=== PATIENT | male | born 1940 | race Caucasian/White ===

== ENCOUNTER 2016-10-11 10:56 | Outpatient (CLI) | payer MEDICARE, OTHER | END 2016-10-11 10:57 | disposition home or self-care (01) | DX: I48.91 Unspecified atrial fibrillation (principal); Z79.01 Long term (current) use of anticoagulants; I50.9 Heart failure, unspecified ==

== ENCOUNTER 2016-11-04 08:00 | Outpatient (CLI) | payer MEDICARE, OTHER | END 2016-11-04 08:01 | disposition home or self-care (01) | DX: I48.91 Unspecified atrial fibrillation (principal); Z79.01 Long term (current) use of anticoagulants; I50.9 Heart failure, unspecified ==

== ENCOUNTER 2016-12-30 08:00 | Outpatient (CLI) | payer MEDICARE, OTHER | END 2016-12-30 08:01 | disposition home or self-care (01) | DX: I48.91 Unspecified atrial fibrillation (principal); Z79.01 Long term (current) use of anticoagulants; I50.9 Heart failure, unspecified ==

== ENCOUNTER 2017-01-02 09:17 | Outpatient (CLI) | payer MEDICARE, OTHER | END 2017-01-02 09:18 | disposition home or self-care (01) | DX: Z79.01 Long term (current) use of anticoagulants (principal); I48.91 Unspecified atrial fibrillation; I50.9 Heart failure, unspecified ==

== ENCOUNTER 2017-03-18 17:54 | Emergency (ER) | payer MEDICARE, OTHER ==
[2017-03-18] MEDS ORDERED: TETANUS/DIPHTHERIA/PERTUSSIS 0.5 ML SYRINGE IM ONE ×2 (18:02→18:32)
--- NOTE | 2017-03-18 18:49 | ED Physician Documentation ---
History of Present Illness - Stated complaint Stated Complaint: RT ARM BLEED - Chief complaint Chief Complaint: Ext Problem - Additonal information Additional information: hx from pt 77 male on coumadin X 30 yr for aortic valve caught L FA on backpack while in [place] with friends and has a small skin tear that would not stop bleeding INR 3.7 today no other concerns Review of Systems Skin: reports: Laceration (s) PD PAST MEDICAL HISTORY - Past Medical History Past Medical History: Yes Cardiovascular: Atrial fibrillation - Past Surgical History Past Surgical History: Yes Cardiovascular: Valve replacement - Present Medications Home Medications: Ambulatory Orders Medication Instructions Recorded Confirmed Metoprolol Tartrate 20 mg PO DAILY 03/18/17 03/18/17 Warfarin [Coumadin] 5 mg PO DAILY 03/18/17 03/18/17 - Allergies Allergies/Adverse Reactions: Allergies Allergy/AdvReac Type Severity Reaction Status Date / Time No Known Drug Allergies Allergy Verified 03/18/17 18:00 - Social History Does the pt smoke?: No Smoking Status: Former smoker - Immunizations Immunizations are current?: No Immunizations: TDAP >10years/unknown PD ED PE NORMAL - Vitals Vital signs reviewed: Yes - Extremities Extremities: Other (R FA small skin tear approx 2 cm no active bleed at this time, no infection, no deformity, MSV intact) Results - Vitals Vitals: Vital Signs - 24 hr 03/18/17 17:58 Temperature 36.3 C L Heart Rate 68 Respiratory 18 Rate Blood Pressure 136/72 H O2 Saturation 97 Oxygen O2 Source Room air - Labs Labs: Laboratory Tests 03/18/17 18:29 Whole Blood INR 3.7 H PD MEDICAL DECISION MAKING - ED course ED course: tdap given wound cleanned dressed with gelfoam Departure - Departure Disposition: 01 Home, Self Care Clinical Impression: Skin tear Condition: Good Instructions: ED Avulsion Dermal Follow-Up: Silvano Hernandez MD [Primary Care Provider] - Comments: Leave the dressing with the gel foam on for 48 hr, then may remove. Soak the gel foam to remove - don't just pull. After the dressing is removed, apply antibiotic ointment every day for a week. Return for any concerns of infection Make a record of getting your tetanus shot updated today. And please follow up with your PMD to get your blood pressure rechecked - it was a little bit high today
[2017-03-18 19:00] VITALS: BP 120/73
== END 2017-03-18 18:59 | disposition home or self-care (01) ==
LOC: ED 17:54
DX: S51.812A Laceration without foreign body of left forearm, initial encounter (principal); W45.8XXA Other foreign body or object entering through skin, initial encounter; Z23 Encounter for immunization; R03.0 Elevated blood-pressure reading, without diagnosis of hypertension; Z79.01 Long term (current) use of anticoagulants; Z95.2 Presence of prosthetic heart valve; I48.91 Unspecified atrial fibrillation; Z87.891 Personal history of nicotine dependence
CPT/HCPCS: 85610; 90471; 99282; 99283

== ENCOUNTER 2017-03-19 15:27 | Emergency (ER) | payer MEDICARE, OTHER ==
[2017-03-19 15:34] VITALS: BP 120/66
--- NOTE | 2017-03-19 16:13 | ED Physician Documentation ---
PD HPI WOUND RECHECK - Stated complaint Stated Complaint: WOUND CHECK - Chief complaint Chief Complaint: Wound - Histroy obtained from History obtained from: Patient - History of Present Illness Location: Right Upper Extremity Timing - onset: Yesterday - Additional information Additional information: Skin tear, needs dressing change, Review of Systems Constitutional: denies: Fever, Chills Cardiac: reports: Reviewed and negative Respiratory: reports: Reviewed and negative PD PAST MEDICAL HISTORY - Past Medical History Cardiovascular: Atrial fibrillation - Past Surgical History Past Surgical History: Yes Cardiovascular: Valve replacement - Present Medications Home Medications: Ambulatory Orders Medication Instructions Recorded Confirmed Metoprolol Tartrate 20 mg PO DAILY 03/18/17 03/18/17 Warfarin [Coumadin] 5 mg PO DAILY 03/18/17 03/18/17 - Allergies Allergies/Adverse Reactions: Allergies Allergy/AdvReac Type Severity Reaction Status Date / Time No Known Drug Allergies Allergy Verified 03/18/17 18:00 - Social History Does the pt smoke?: No Smoking Status: Former smoker - Immunizations Immunizations are current?: No Immunizations: TDAP >10years/unknown PD ED PE NORMAL - Vitals Vital signs reviewed: Yes - General General: Alert and oriented X 3, No acute distress - Extremities Extremities: Other (Skin tear, small medial R forearm. Steristrips placed and a dressing over that during exam.) - Neuro Neuro: Alert and oriented X 3, Normal speech - Psych Psych: Normal mood, Normal affect Results - Vitals Vitals: Vital Signs - 24 hr 03/19/17 15:29 Temperature 35.7 C L Heart Rate 72 Respiratory 16 Rate Blood Pressure 120/66 O2 Saturation 97 Oxygen O2 Source Room air Departure - Departure Disposition: Home, Self Care Clinical Impression: Skin tear Condition: Good Record reviewed to determine appropriate education?: Yes Instructions: ED Laceration Ext Sutr Stap Tape
== END 2017-03-19 16:20 | disposition home or self-care (01) ==
LOC: ED 15:27
DX: S51.811D Laceration without foreign body of right forearm, subsequent encounter (principal); X58.XXXD Exposure to other specified factors, subsequent encounter; I48.91 Unspecified atrial fibrillation; Z79.01 Long term (current) use of anticoagulants; Z95.2 Presence of prosthetic heart valve; Z87.891 Personal history of nicotine dependence
CPT/HCPCS: 99282; 99283

== ENCOUNTER 2017-06-23 09:22 | Outpatient (CLI) | payer MEDICARE, OTHER | END 2017-06-23 09:23 | disposition home or self-care (01) | LOC: LAB.N 09:22 | PROVIDERS: ATTEND Internal Medicine | DX: I48.91 Unspecified atrial fibrillation (principal); Z79.01 Long term (current) use of anticoagulants; I50.9 Heart failure, unspecified | CPT/HCPCS: 85610 ==

== ENCOUNTER 2017-07-21 08:06 | Outpatient (CLI) | payer MEDICARE, OTHER | END 2017-07-21 08:07 | disposition home or self-care (01) | LOC: LAB.N 08:06 | PROVIDERS: ATTEND Internal Medicine | DX: I48.91 Unspecified atrial fibrillation (principal); I50.9 Heart failure, unspecified; Z79.01 Long term (current) use of anticoagulants | CPT/HCPCS: 85610 ==

== ENCOUNTER 2017-08-11 08:07 | Outpatient (CLI) | payer MEDICARE, OTHER | END 2017-08-11 08:08 | disposition home or self-care (01) | LOC: LAB.N 08:07 | PROVIDERS: ATTEND Internal Medicine | DX: I48.91 Unspecified atrial fibrillation (principal); I50.9 Heart failure, unspecified; Z79.01 Long term (current) use of anticoagulants | CPT/HCPCS: 85610 ==

== ENCOUNTER 2017-08-21 09:40 | Outpatient (CLI) | payer MEDICARE, OTHER | END 2017-08-21 09:41 | disposition home or self-care (01) | LOC: LAB.N 09:40 | PROVIDERS: ATTEND Internal Medicine | DX: I48.91 Unspecified atrial fibrillation (principal); I50.9 Heart failure, unspecified; Z79.01 Long term (current) use of anticoagulants | CPT/HCPCS: 85610 ==

== ENCOUNTER 2017-10-23 11:03 | Outpatient (CLI) | payer MEDICARE, OTHER ==
--- NOTE | 2017-10-23 17:36 | XRAY Report ---
TWO VIEW CHEST: 10/23/2017 CLINICAL INDICATION: Aspiration pneumonia. COMPARISON: 01/03/2015 FINDINGS: Frontal and lateral views of the chest demonstrate a normal cardiac silhouette. Changes of cardiac surgery are stable. Left jugular port terminates in the right atrium. There is new patchy infiltrate at the right base, superimposed upon COPD. No effusion or pneumothorax is seen. IMPRESSION: PATCHY RIGHT BASILAR INFILTRATE, SUPERIMPOSED UPON COPD. TD: 10/23/2017 17:30
== END 2017-10-23 11:04 | disposition home or self-care (01) ==
LOC: DI 11:03
PROVIDERS: ATTEND Internal Medicine Critical Care Medicine
DX: R91.8 Other nonspecific abnormal finding of lung field (principal); J44.9 Chronic obstructive pulmonary disease, unspecified
CPT/HCPCS: 71046

== ENCOUNTER 2017-12-12 00:54 | Outpatient (CLI) | payer MEDICARE, OTHER | END 2017-12-12 00:55 | disposition critical access hospital (66) | LOC: EMS 00:54 | PROVIDERS: ATTEND Surgery | DX: R06.00 Dyspnea, unspecified (principal) | CPT/HCPCS: A0425; A0427 ==

== ENCOUNTER 2017-12-12 01:10 | Emergency (ER) | payer MEDICARE, OTHER ==
[2017-12-12] MEDS ORDERED: IOPAMIDOL-300 100 ML VIAL IVP ONE ×2 (01:11→02:36)
[2017-12-12] MEDS ORDERED: IPRATROPIUM/ALBUTEROL 3 ML NEB INH STA (01:21)
--- NOTE | 2017-12-12 01:24 | ED Physician Documentation ---
PD HPI DYSPNEA - Stated complaint Stated Complaint: SOA, LUNG CA - Chief complaint Chief Complaint: Resp - History obtained from History obtained from: Patient, EMS - History of Present Illness Timing - onset: Today Timing - onset during: Rest Timing - details: Gradual onset, Still present Improved by: Inhaler/neb Worsened by: Laying flat Associated symptoms: Wheezing, Bilateral edema. No: Fever, Cough, Chest pain / discomfort Similar symptoms before: Work up / diagnostics, Treatment - Additional information Additional information: Patient is a 77 year old male with a history of metastatic lung ca, copd/asthma and recent MN 3 months prior that subsequently led to cardiac arrest who is presenting to the emergency department for shortness of breath. Patient states that he had his dose of chemotherapy yesterday and today he felt more short of breath, which is not uncommon for him. he stated that he kept getting progressively worse, especially when he would lie down so he called ems. When ems arrived he was just starting a breathing treatment. he was treated with an additional duoneb while enroute. Upon initial evaluation patient stated that he was felling a bit better. He was oxygenating well but he had some accessory muscle usage. Review of Systems Constitutional: denies: Fever, Chills Eyes: reports: Reviewed and negative Ears: reports: Reviewed and negative Nose: reports: Reviewed and negative Throat: reports: Reviewed and negative Cardiac: reports: Pedal edema. denies: Chest pain / pressure, Palpitations Respiratory: reports: Dyspnea, Cough, Wheezing GI: denies: Nausea, Vomiting : reports: Reviewed and negative Musculoskeletal: reports: Extremity swelling Neurologic: denies: Generalized weakness, Focal weakness Immunocompromised: reports: Immunocompromised, Chemotherapy PD PAST MEDICAL HISTORY - Past Medical History Cardiovascular: Atrial fibrillation - Past Surgical History Past Surgical History: Yes Cardiovascular: Valve replacement - Present Medications Home Medications: Ambulatory Orders Medication Instructions Recorded Confirmed Metoprolol Tartrate 20 mg PO DAILY 03/18/17 03/19/17 Warfarin [Coumadin] 5 mg PO DAILY 03/18/17 03/19/17 - Allergies Allergies/Adverse Reactions: Allergies Allergy/AdvReac Type Severity Reaction Status Date / Time No Known Drug Allergies Allergy Verified 03/18/17 18:00 - Social History Does the pt smoke?: No Smoking Status: Former smoker Does the pt drink ETOH?: No Does the pt have substance abuse?: No - Immunizations Immunizations are current?: Yes Immunizations: TDAP >10years/unknown - POLST Patient has POLST: No PD ED PE NORMAL - Neck Neck: Other - Cardiac Cardiac: RRR - Abdomen Abdomen: Soft, Non tender, Non distended - Derm Derm: Normal color - Neuro Neuro: Alert and oriented X 3, No motor deficit, Normal speech PD ED PE EXPANDED - HEENT HEENT: Dry mucous membranes - Neck Neck: JVD present - Cardiac Cardiac: Murmur Present, Other (port in left chest) - Respiratory Respiratory: Wheezing, Decreased breath sounds, Right middle lobe, Right lower lobe Results - Vitals Vitals: Vital Signs - 24 hr 12/12/17 12/12/17 12/12/17 01:14 01:54 02:08 Temperature 36.1 C L Heart Rate 89 87 93 Respiratory 18 8 L 18 Rate Blood Pressure 100/66 88/61 L O2 Saturation 100 98 12/12/17 12/12/17 12/12/17 02:41 03:02 03:20 Temperature Heart Rate 88 85 85 Respiratory 17 17 19 Rate Blood Pressure 95/60 90/49 L 90/49 L O2 Saturation 100 100 96 12/12/17 03:21 Temperature Heart Rate 91 Respiratory 20 Rate Blood Pressure 96/59 L O2 Saturation 100 Oxygen O2 Source Room air - EKG (time done) 0122 Rate: Rate (enter#) (88) Rhythm: NSR [place]: Anterior hemiblock Ischemia: ST elevation c/w ischemia, ST depression, Q waves, T wave inversion ( V4-V6) Compare to prior EKG: Old EKG unavailable 0147 Rate: Rate (enter#) (89) Rhythm: NSR Compare to prior EKG: Unchanged from prior EKG - Labs Labs: Laboratory Tests 12/12/17 12/12/17 12/12/17 01:32 01:32 01:32 WBC RBC Hgb Hct MCV MCH MCHC RDW Plt Count MPV Neut # Lymph # [place] # Eos # Baso # Absolute Nucleated RBC Total Counted Band Neuts % (Manual) Abnorm Lymph % (Manual) Nucleated RBC % Neutrophils # (Manual) Lymphocytes # (Manual) Monocytes # (Manual) Eosinophils # (Manual) Basophils # (Manual) Differential Comment Platelet Estimate RBC Morph Micro Appear PT 26.4 H INR 2.4 H Sodium 132 L Potassium 4.5 Chloride 99 L Carbon Dioxide 24 Anion Gap 9.0 BUN 23 H Creatinine 0.8 Estimated GFR (MDRD) 94 Glucose 112 H Lactic Acid Calcium 8.9 Total Bilirubin 0.5 AST 62 H ALT 78 H Alkaline Phosphatase 174 H Troponin I 0.09 B-Natriuretic Peptide Total Protein 6.9 Albumin 2.7 L Globulin 4.2 Albumin/Globulin Ratio 0.6 L Lipase 21 L 12/12/17 12/12/17 12/12/17 01:32 01:48 01:48 WBC 24.3 H RBC 3.52 L Hgb 8.8 L Hct 28.9 L MCV 82.0 MCH 24.9 L MCHC 30.3 L RDW 21.3 H Plt Count 558 H MPV 7.2 L Neut # Not Reportable Lymph # Not Reportable [place] # Not Reportable Eos # Not Reportable Baso # Not Reportable Absolute Nucleated RBC Not Reportable Total Counted 100 Band Neuts % (Manual) 11 H Abnorm Lymph % (Manual) 0 Nucleated RBC % Not Reportable Neutrophils # (Manual) 23.6 H Lymphocytes # (Manual) 0.5 L Monocytes # (Manual) 0.2 Eosinophils # (Manual) 0.0 Basophils # (Manual) 0.0 Differential Comment MANUAL DIFFERENTIAL Platelet Estimate INCREASED (>450,000) RBC Morph Micro Appear 1+ OVALOCYTES PT INR Sodium Potassium Chloride Carbon Dioxide Anion Gap BUN Creatinine Estimated GFR (MDRD) Glucose Lactic Acid 2.8 H Calcium Total Bilirubin AST ALT Alkaline Phosphatase Troponin I B-Natriuretic Peptide 1091 H Total Protein Albumin Globulin Albumin/Globulin Ratio Lipase - Rads (name of study) ct chest angio Radiology: Final report received (no PE, but mutliple other findings including pleural effusions, pericardial effusion, likely pulmonary infiltrate), See rad report PD MEDICAL DECISION MAKING - ED course Complexity details: reviewed old records, reviewed results, re-evaluated patient , considered differential, d/w patient, d/w family, d/w project consultant ED course: Patient was seen and examined at bedside. IV access was gained and labs were drawn. ekg was performed and showed some elevations in V2, V3 and with minimal depressions in inferior leads. as well as inversions of V4-V5. Patient did have a recent MN and arrest and this could be secondary to the prior MN [facility] was contacted for copies of prior ekg. repeat ekg was performed and was unchanged and patient denied any chest pain. Case was discussed with ER attending at [facility] who was able to review results and stated that the changes on today ekg were likely secondary to the prior MN and would not call a stemi at this time. patient was sent for CT angio. When patient returned from imaging the results were reviewed. Patient did not have a PE but he had multiple other findings including pleural effusion, likely infiltrate, pericardial effusion. Patient needed a higher level of care and his set designer, oncologist and upholsterer outside were all at [facility]. Patient was started on rocephin and 500ml bolus. [facility] was contacted and the case was discussed with Dr Velazco who accepts the patient. patient was transferred in stable condition. Departure - Departure Disposition: 02 Transfer Acute Care Hosp Clinical Impression: Pneumonia, Pericardial effusion, Pleural effusion, Abnormal EKG Condition: Stable
[2017-12-12 01:55] LABS: INR 2.4 (0.8-1.2); PT - PROTHROMBIN TIME 26.4 secs (9.9-12.6)
[2017-12-12 01:58] LABS: ALBUMIN 2.7 g/dL (3.2-5.5); ALBUMIN/GLOBULIN RATIO 0.6 (1.0-2.2); BILIRUBIN,TOTAL 0.5 mg/dL (0.2-1.0); CALCIUM 8.9 mg/dL (8.5-10.3); CREATININE 0.8 mg/dL (0.6-1.2); TOTAL PROTEIN 6.9 g/dL (6.7-8.2)
[2017-12-12 02:07] LABS: BASOPHILS % (AUTO) 0.3 %; HGB - HEMOGLOBIN 8.8 g/dL (14.0-18.0); LYMPHOCYTES % (AUTO) 1.7 %; MEAN CORPUSCULAR HEMOGLOBIN 24.9 pg (27.0-31.0); MEAN CORPUSCULAR HGB CONC 30.3 g/dL (32.0-36.0); MEAN PLATELET VOLUME 7.2 fL (7.4-11.4); MONOCYTES % (AUTO) 1.5 %; NEUTROPHILS % (AUTO) 95.5 %; PLT - PLATELET COUNT 558 10^3/uL (130-450); RED BLOOD COUNT 3.52 10^6/uL (4.70-6.10); RED CELL DISTRIBUTION WIDTH 21.3 % (12.0-15.0); WHITE BLOOD COUNT 24.3 x10^3/uL (4.8-10.8)
[2017-12-12 02:10] LABS: ABNORMAL LYMPHS % (MANUAL) 0 %
[2017-12-12] MEDS ORDERED: IOPAMIDOL-300 100 ML VIAL ONE (02:13)
[2017-12-12] MEDS ORDERED: SODIUM CHLORIDE 0.9% 1,000 ML IV ONE (02:23)
[2017-12-12 02:31] LABS: BAND NEUTROPHILS % (MANUAL) 11 %; LYMPHOCYTES # (MANUAL) 0.5 10^3/uL (1.5-3.5); LYMPHOCYTES % (MANUAL) 2 %; MONOCYTES # (MANUAL) 0.2 10^3/uL (0.0-1.0); NEUTROPHILS # (MANUAL) 23.6 10^3/uL (1.5-6.6); NEUTROPHILS % (MANUAL) 86 %
[2017-12-12 02:32] LABS: DIFFERENTIAL COMMENT MANUAL DIFFERENTIAL; PLATELET ESTIMATE, MANUAL INCREASED (>450,000) (NORMAL)
[2017-12-12] MEDS ORDERED: cefTRIAXone 1 GM in SODIUM CHLORIDE 0.9% MINIBAG 100 ML IV STA (02:47)
--- NOTE | 2017-12-12 03:13 | CT Report ---
EXAM: CT ANGIOGRAM CHEST EXAM DATE: 12/12/2017 02:42 AM. CLINICAL HISTORY: Metastatic lung cancer, short of breath. COMPARISON: None. TECHNIQUE: Routine helical imaging was performed through the chest in the pulmonary arterial phase. I V Contrast: Nonionic. Reconstructions: Coronal 3-D MIP reconstructions.Sagittal and coronal. In accordance with CT protocol optimization, one or more of the following dose reduction techniques w ere utilized for this exam: automated exposure control, adjustment of mA and/or KV based on patient s ize, or use of iterative reconstructive technique. FINDINGS: Pulmonary Arteries: Diagnostic quality: Adequate through the segmental arteries. No evidence for acute or chronic pulmona ry emboli. No evidence of right heart strain. Lungs/Pleura: Emphysema. Numerous bilateral pulmonary nodules consistent with metastatic disease. Mod erate right and small left pleural effusions. Bibasilar atelectasis or consolidation, right worse mervin n left. Narrowing of that bronchus intermedius on the right and also the right middle lobe and lower lobe bronchi. This may be due to encasing neoplasm. No pneumothorax seen. Mediastinum: Mild cardiomegaly. Coronary artery calcifications. Normal sized mediastinal lymph nodes. Probable loculated pericardial fluid collection on the left measuring 5.4 x 3.4 cm, series 5 image 1 03. Thoracic Aorta: Moderate atherosclerosis. Only slightly enhanced. No obvious aortic dissection. Aorti c valve prosthesis. Upper Abdomen: Probable metastatic disease in the liver. Other: Median sternotomy. Osteopenia. Large lytic metastasis in the right humeral neck. Healing bilat eral rib fractures. IMPRESSION: 1. No pulmonary emboli seen. 2. Emphysema with numerous bilateral pulmonary metastases. 3. Moderate right and small left pleural effusions with bibasilar atelectasis or consolidation, right greater than left. 4. Cardiomegaly with postoperative changes. Probable loculated pericardial fluid collection on the le ft measuring 5.4 x 3.4 cm. 5. Possible encasement of the right bronchus intermedius and the right middle lobe and lower lobe bro nchi with narrowing. 6. Metastatic disease in the liver. 7. Lytic metastasis in the right humeral neck. [facility] Referring Provider Line: [phone] SITE ID: [id number]
[2017-12-12 04:15] VITALS: BP 89/76
== END 2017-12-12 04:30 | disposition short-term general hospital (02) ==
LOC: EDUNIT# → ED 01:10
DX: J18.9 Pneumonia, unspecified organism (principal); I31.3 Pericardial effusion (noninflammatory); J90 Pleural effusion, not elsewhere classified; I44.4 Left anterior fascicular block; R94.31 Abnormal electrocardiogram [ECG] [EKG]; J44.9 Chronic obstructive pulmonary disease, unspecified; C78.00 Secondary malignant neoplasm of unspecified lung; I25.2 Old myocardial infarction; I48.91 Unspecified atrial fibrillation; Z79.01 Long term (current) use of anticoagulants; Z87.891 Personal history of nicotine dependence
CPT/HCPCS: 36415; 71275; 80053; 83605; 83690; 83880; 84484; 85025; 85610; 87040; 93005; 94640; 96365; 99284; 99285; Q9967

== ENCOUNTER 2017-12-12 04:38 | Outpatient (CLI) | payer MEDICARE, OTHER | END 2017-12-12 04:39 | disposition short-term general hospital (02) | LOC: EMS 04:38 | PROVIDERS: ATTEND Surgery | DX: I31.3 Pericardial effusion (noninflammatory) (principal); J90 Pleural effusion, not elsewhere classified; R94.31 Abnormal electrocardiogram [ECG] [EKG] | CPT/HCPCS: A0425; A0426 ==

== ENCOUNTER 2017-12-29 08:00 | Outpatient (CLI) | payer MEDICARE, OTHER | END 2017-12-29 08:01 | disposition home or self-care (01) | LOC: LAB.N 08:00 | PROVIDERS: ATTEND Internal Medicine | DX: Z79.01 Long term (current) use of anticoagulants (principal); I48.91 Unspecified atrial fibrillation; I50.9 Heart failure, unspecified | CPT/HCPCS: 85610 ==

== ENCOUNTER 2018-01-14 14:48 | Observation (INO) | payer MEDICARE, OTHER ==
--- NOTE | 2018-01-14 15:11 | ED Physician Documentation ---
PD HPI CHEST PAIN - Stated complaint Stated Complaint: ABNORMAL HEARTBEAT - Chief complaint Chief Complaint: Cardiac - History of Present Illness Timing - onset: Other (77-year-old gentleman with prior MN with V. fib cardiac arrest in September, he was stented. He also has metastatic lung cancer and a remote history of mechanical valve replacement maintained on warfarin, last had his INR checked about a week ago it was too high per him but he does not know the number he went to cardiac rehab today. He is only symptom is feeling fatigued for the last few days. He denies dyspnea or chest pain. A cardiac rehab he had a lot of extrasystoles and A. fib and abnormal ST complexes so he was referred over to the emergency department. He says he feels fine other than fatigue which is been going on for about a day.) Review of Systems Ten Systems: 10 systems reviewed and negative Constitutional: reports: Fatigue. 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 Pulmonary fibrosis, crohns - Past Surgical History Past Surgical History: Yes General: Hiatal hernia repair Ortho: Other Cardiovascular: Coronary stent, Valve replacement - Present Medications Home Medications: Ambulatory Orders Medication Instructions Recorded Confirmed Warfarin [Coumadin] 5 mg PO 1700 03/18/17 01/14/18 Albuterol Sulf [Ventolin Hfa 2 puffs INH Q4HR PRN 01/14/18 01/14/18 Inhaler] Fluticasone/Salmeterol [Advair 1 puffs INH BID 01/14/18 01/14/18 250-50 Diskus] Furosemide [Furosemide] 20 mg PO DAILY 01/14/18 01/14/18 Metoprolol Succinate 25 mg PO QPM 01/14/18 01/14/18 Metoprolol Succinate [Toprol Xl] 75 mg PO DAILY 01/14/18 01/14/18 Metoprolol Tartrate 25 mg PO QPM 01/14/18 01/14/18 Tiotropium [place] [Spiriva] 18 mcg INH DAILY 01/14/18 01/14/18 - Allergies Allergies/Adverse Reactions: Allergies Allergy/AdvReac Type Severity Reaction Status Date / Time No Known Drug Allergies Allergy Verified 03/18/17 18:00 - Social History Does the pt smoke?: No Smoking Status: Never smoker Does the pt drink ETOH?: No Does the pt have substance abuse?: No - Family History Family history: reports: Non contributory - Immunizations Immunizations are current?: Yes Immunizations: TDAP >10years/unknown - POLST Patient has POLST: No PD ED PE NORMAL - Vitals Vital signs reviewed: Yes - General General: Alert and oriented X 3, No acute distress - HEENT HEENT: PERRL, EOMI - Neck Neck: Supple, no meningeal sign, No bony TTP - Cardiac Cardiac: Other (Irregularly irregular with closing click) - Respiratory Respiratory: Other (Diminished throughout, nonfocal) - Abdomen Abdomen: Soft, Non tender - Extremities Extremities: Other (Mild to moderate pitting pedal edema which is symmetric) - Neuro Neuro: Alert and oriented X 3, Normal speech - Psych Psych: Normal mood, Normal affect Results - Vitals Vitals: Vital Signs - 24 hr 01/14/18 01/14/18 14:55 15:58 Temperature 36 C L Heart Rate 105 H 81 Respiratory 20 16 Rate Blood Pressure 101/75 111/74 O2 Saturation 96 100 Oxygen O2 Source Room air - EKG (time done) 1429 Rate: Rate (enter#) (116) Rhythm: Atrial fibrillation, Other (He is having multiple runs of V. tach and he has ST elevation in V2 through V4, but this seems related to the V. tach as opposed to anything else.) Computer interpretation: Agree with computer 1606 Rate: Rate (enter#) (77) Rhythm: NSR (with PVCs) [place]: Normal Intervals: Other (LAFB) Ischemia: Non specific changes. No: ST elevation c/w ischemia Compare to prior EKG: Changed from prior EKG (better with much less ectopy after 5mg lopressor IVP) - Labs Labs: Laboratory Tests 01/14/18 01/14/18 01/14/18 15:43 15:43 15:43 WBC 10.1 RBC 4.50 L Hgb 11.1 L Hct 36.1 L MCV 80.3 MCH 24.7 L MCHC 30.8 L RDW 23.1 H Plt Count 458 H MPV 7.3 L Neut # 8.2 H Lymph # 0.6 L [place] # 0.9 Eos # 0.3 Baso # 0.0 Absolute Nucleated RBC 0.01 Nucleated RBC % 0.1 Manual Slide Review Indicated WBC Morphology NORMAL APPEARANCE Platelet Estimate INCREASED (>450,000) Platelet Morphology NORMAL APPEARANCE RBC Morph Micro Appear 1+ POLYCHROMASIA PT > 120.0 H* INR > 10.0 H* Sodium 136 Potassium 3.7 Chloride 100 L Carbon Dioxide 28 Anion Gap 8.0 BUN 24 H Creatinine 0.8 Estimated GFR (MDRD) 94 Glucose 109 H Calcium 10.7 H Magnesium 2.0 Total Bilirubin 0.8 AST 26 ALT 28 Alkaline Phosphatase 153 H Troponin I Total Protein 7.6 Albumin 3.0 L Globulin 4.6 H Albumin/Globulin Ratio 0.7 L Lipase 19 L /16/18 15:43 WBC RBC Hgb Hct MCV MCH MCHC RDW Plt Count MPV Neut # Lymph # [place] # Eos # Baso # Absolute Nucleated RBC Nucleated RBC % Manual Slide Review WBC Morphology Platelet Estimate Platelet Morphology RBC Morph Micro Appear PT INR Sodium Potassium Chloride Carbon Dioxide Anion Gap BUN Creatinine Estimated GFR (MDRD) Glucose Calcium Magnesium Total Bilirubin AST ALT Alkaline Phosphatase Troponin I 0.19 Total Protein Albumin Globulin Albumin/Globulin Ratio Lipase PD MEDICAL DECISION MAKING - ED course ED course: 77-year-old gentleman presents with asymptomatic or relatively asymptomatic EKG changes in the setting of metastatic cancer and an MN a few months ago with V. fib cardiac arrest. Dr. Bishop, his shaft headman was contacted and felt that coronary intervention would not be undertaken given his comorbidities. He did Recommend increasing his beta blockade. He was given 5 mg of IV Lopressor here and he had much less ectopy after that. Lab reported to be preliminarily that his INR is probably too high to calculate , although they have not actually given me a value yet. I do not want to treat it yet given lack of ongoing bleeding because he does have a prosthetic valve in place and we do not want overshoot either. Given the possibility of atypical MN I spoke with Dr. Cunningham for admission and rule out at 4:35 PM Departure - Departure Disposition: ED Place in Observation Clinical Impression: Abnormal EKG, Heart valve disease, Supratherapeutic INR Fatigue Qualifiers: Fatigue type: unspecified Qualified Code(s): R53.83 - Other fatigue Condition: Stable Discharge Date/Time: 01/14/18 18:52
[2018-01-14] MEDS ORDERED: METOPROLOL 5 MG/5 ML VIAL IVP STA (15:27)
--- NOTE | 2018-01-14 15:44 | XRAY Preliminary Report ---
Exam: XR CHEST 1 VIEW X-RAY IMPRESSION: 1. Progression of extensive pulmonary metastatic disease. 2. Moderate right pleural effusion with right lung base consolidation/atelectasis. 3. Mild cardiomegaly. 4. 4 cm lytic lesion right humeral neck, increased risk for pathologic fracture. [facility] SITE ID: [id number]
--- NOTE | 2018-01-14 15:49 | XRAY Report ---
EXAM: CHEST RADIOGRAPHY EXAM DATE: 01/14/2018 03:18 PM. CLINICAL HISTORY: Dyspnea. COMPARISON: Chest CTA 12/12/2017. Two-view chest 10/23/2017. TECHNIQUE: 1 view. FINDINGS: Lungs/Pleura: Increasing number and caliber of innumerable pulmonary masses. Stable moderate blunting right lateral costophrenic angle. Suspect underlying lung disease. No pneumothorax. Stable opacification inferior third right lung. Mediastinum: Remote sternotomy. Left jugular Port-A-Cath tip cavoatrial junction. Stable mild cardiomegaly. Other: 4 cm lytic lesion right humeral neck. IMPRESSION: 1. Progression of extensive pulmonary metastatic disease. 2. Moderate right pleural effusion with right lung base consolidation/atelectasis. 3. Mild cardiomegaly. 4. 4 cm lytic lesion right humeral neck, increased risk for pathologic fracture. [facility] Referring Provider Line: [phone] SITE ID: [id number]
[2018-01-14 15:50] LABS: BASOPHILS % (AUTO) 0.4 %; EOSINOPHILS # (AUTO) 0.3 10^3/uL (0.0-0.7); EOSINOPHILS % (AUTO) 3.4 %; HGB - HEMOGLOBIN 11.1 g/dL (14.0-18.0); LYMPHOCYTES # (AUTO) 0.6 10^3/uL (1.5-3.5); LYMPHOCYTES % (AUTO) 6.1 %; MEAN CORPUSCULAR HEMOGLOBIN 24.7 pg (27.0-31.0); MEAN CORPUSCULAR HGB CONC 30.8 g/dL (32.0-36.0); MEAN CORPUSCULAR VOLUME 80.3 fL (80.0-94.0); MEAN PLATELET VOLUME 7.3 fL (7.4-11.4); MONOCYTES # (AUTO) 0.9 10^3/uL (0.0-1.0); MONOCYTES % (AUTO) 9.2 %; NEUTROPHILS # (AUTO) 8.2 10^3/uL (1.5-6.6); NEUTROPHILS % (AUTO) 80.9 %; PLT - PLATELET COUNT 458 10^3/uL (130-450); RED CELL DISTRIBUTION WIDTH 23.1 % (12.0-15.0); WHITE BLOOD COUNT 10.1 x10^3/uL (4.8-10.8)
[2018-01-14 16:00] LABS: ALBUMIN/GLOBULIN RATIO 0.7 (1.0-2.2); BILIRUBIN,TOTAL 0.8 mg/dL (0.2-1.0); CALCIUM 10.7 mg/dL (8.5-10.3); CREATININE 0.8 mg/dL (0.6-1.2); TOTAL PROTEIN 7.6 g/dL (6.7-8.2)
[2018-01-14 16:04] LABS: PLATELET ESTIMATE, MANUAL INCREASED (>450,000) (NORMAL); PLATELET MORPHOLOGY NORMAL APPEARANCE (NORMAL)
[2018-01-14 16:49] LABS: PT - PROTHROMBIN TIME > 120.0 secs (9.9-12.6)
[2018-01-14] MEDS ORDERED: CHERRY SYRUP 10 ML UDC PO ONE (16:49)
[2018-01-14] MEDS ORDERED: PHYTONADIONE 10 MG/ML AMP PO ONE (16:49)
[2018-01-14 16:50] LABS: INR > 10.0 (0.8-1.2)
[2018-01-14] MEDS ORDERED: NITROGLYCERIN SL 0.4 MG TABLET SL PRN (17:25)
[2018-01-14] MEDS ORDERED: MORPHINE 2 MG/ML SYRINGE IVP PRN (17:25)
[2018-01-14] MEDS ORDERED: ACETAMINOPHEN 325 MG TABLET PO PRN (17:28)
[2018-01-14] MEDS ORDERED: ONDANSETRON 4 MG/2 ML VIAL IVP PRN (17:28)
--- NOTE | 2018-01-14 17:40 | HISTORY & PHYSICAL EXAMINATION ---
Chief Complaint - Chief Complaint Chief Complaint: very fatigue History of Present Illness - Admitted From Admitted From:: ER - History Obtained From History obtained from: pt - History of Present Illness HPI Comment/Other: Mr. Finch is 77-year-old male with a PMH significant for stage 4 lung cancer under immune therapy, hx of NH, CAD with A.fib and V. 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 The second and third EKG did not show V. tachycardia, instead of Afib as pt's baseline EKG. Pt's Troponin had slight elevated to 0.19. Pt complaint fatigue but without chest pain, pressure, nausea, vomiting, diaphoresis or other radiated pain. Pt saw his computer aided drafter today morning. Dr. Bishop, his computer aided drafter, was contacted in the ER and the computer aided drafter felt that coronary intervention would not be undertaken given his comorbidities. He did Recommend increasing his beta blockade. Lab reported his INR is over 10. pt report he did not have PT/INR test for three weeks and he took Coumadin yesterday. Pt was given one dosage of Vitamin K in the ER. Pt is admitted in observation unit for r/o acute NH. 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 Pulmonary fibrosis, crohns - Past Surgical History General: reports: Hiatal hernia repair Ortho: reports: Other Cardiovascular: reports: Coronary stent, Valve replacement - Family & Social History Family History: Mother: , CAD, Cancer, Father: , Alzheimer's Disease Family History Comment/Other: pt report he is living with his in [facility]. pt had two daughters both are now at [place] Living arrangement: At home Living Situation: With spouse/s.o. Social History Notes: pt denies cigarette smoking, alcohol and drug abuse. - Substance History Use: Uses substance without health or social issues: NONE Abuse: Recurrent use of substance despite neg consequences: NONE - POLST POLST Status: Full Code Meds/Allgy - Home Medications Home Medications: Ambulatory Orders Medication Instructions Recorded Confirmed Warfarin [Coumadin] 5 mg PO 1700 03/18/17 01/14/18 Albuterol Sulf [Ventolin Hfa 2 puffs INH Q4HR PRN 01/14/18 01/14/18 Inhaler] Fluticasone/Salmeterol [Advair 1 puffs INH BID 01/14/18 01/14/18 250-50 Diskus] Furosemide [Furosemide] 20 mg PO DAILY 01/14/18 01/14/18 Metoprolol Succinate 25 mg PO QPM 01/14/18 01/14/18 Metoprolol Succinate [Toprol Xl] 75 mg PO DAILY 01/14/18 01/14/18 Metoprolol Tartrate 25 mg PO QPM 01/14/18 01/14/18 Tiotropium [place] [Spiriva] 18 mcg INH DAILY 01/14/18 01/14/18 - Allergies Allergies/Adverse Reactions: Allergies Allergy/AdvReac Type Severity Reaction Status Date / Time No Known Drug Allergies Allergy Verified 03/18/17 18:00 Review of Systems - Constitutional Constitutional: reports: Fatigue, Weakness. denies: Fever, Chills, Malaise, Poor appetite, Diaphoresis, Night sweats - Eyes Eyes: denies: Pain, Blurred vision, Spots in vision, Field loss, Vision loss, Dipolpia - Ears, Nose & Throat Ears, Nose & Throat: denies: Ear pain, Hearing loss, Hearing aids, Tinnitus, Vertigo, Nasal pain, Nasal discharge, Nosebleeds, Nasal obstruction, Nasal congestion, Postnasal drainage, Sore throat, Mouth lesions, Bleeding gums - Cardiovascular Cariovascular: denies: Irregular heart rate, Palpitations, Chest pain, Edema, Lightheadedness, Syncope, Exertional dyspnea, Decr. exercise tolerance - Respiratory Respiratory: reports: SOB with exertion. denies: Cough, Sputum production, Wheezing, Snoring, Hemoptysis, Orthopnea, SOB at rest - Gastrointestinal Gastrointestinal: denies: Abdominal pain, Abdominal distention, Constipation, Diarrhea, Change in bowel habits, Rectal bleeding, Black stools, Bloody stools, Nausea, Vomiting, Tanner blood emesis, Coffee grounds emesis, Reflux/heartburn - Genitourinary Genitourinary: denies: Dysuria, Frequency, Urgency, Hematuria, Incontinence, Flank pain, Nocturia, Urethral discharge - Musculoskeletal Musculoskeletal: denies: Muscle pain, Back pain, Muscle aches, Stiffness, Limited range of motion, Muscle weakness - Integumentary Integumentary: denies: Rash, Pruritis, Lesions, Dryness, Pigment changes - Neurological Neurological: reports: General weakness. denies: Focal weakness, Headache, Dizziness, Numbness, Memory problems, Pre-existing deficit, Abnormal gait, Seizures, Incoordination, Slurred speech - Psychiatric Psychiatric: denies: Depression, Anxiety, Suicidal, Delusions, Hallucinations, Homicidal - Endocrine Endocrine: denies: Polyuria, Polydypsia, Polyphagia, Intolerance to cold - Hematologic/Lymphatic Hematologic/Lymphatic: denies: Anemia, Bruising, Petechiae, Blood clots, Lymphadenopathy, Bleeding tendencies Exam - Vital Signs Reviewed Vital Signs: Yes Vital Signs: Vital Signs x48h Temp Pulse Resp BP Pulse Ox 01/14/18 15:58 81 16 111/74 100 01/14/18 14:55 36 C L 105 H 20 101/75 96 - Physical Exam General Appearance: positive: No acute distress, Alert. negative: Lethargic Eyes Bilateral: positive: Normal inspection, PERRL, No lid inflammation, Conjunctivae nml ENT: positive: ENT inspection nml, Pharynx nml, No signs of dehydration. negative: Purulent nasal drainage, Pharyngeal erythema, Oral lesions Neck: negative: Nml inspection, Thyroid nml, No JVD, Trachea midline, Thyromegaly, Stiff neck, Swelling/bruising, Tracheal deviation Respiratory: positive: Chest non-tender, No respiratory distress, Other ( diminished lung bilaterally). negative: Wheezes, Rales Cardiovascular: positive: Irregularly irregular, Systolic murmur, Diastolic murmur. negative: Tachycardia, Bradycardia Peripheral Pulses: positive: 2+ Abdomen: positive: Non-tender, No organomegaly, Nml bowel sounds, No distention. negative: Tenderness, Guarding, Rebound Back: positive: Nml inspection. negative: CVA tenderness (R), CVA tenderness (L ) Skin: positive: Color nml, No rash, Warm, Dry. negative: Cyanosis, Diaphoresis , Pallor Extremities: positive: Non-tender, Full ROM, Nml appearance. negative: Calf tenderness, Joint swelling, Eugene's sign/cords Neurologic/Psychiatric: positive: Oriented x3, Sensation nml, Mood/affect nml. negative: Sensory loss, Facial droop, Slurred/abnml speech, Depressed mood/ affect Conclusion/Plan - Problem List (1) Fatigue Conclusion/Plan: pt did not complain chest pain or pressure. Pt had elevated troponin, and extensive cardiac history, with one episode of V. tach on tele, vital monitor closely continue troponin serial EKG PRN Nitro PRN Morphin PRN resume home long and short action of Metoprolol Qualifiers: Fatigue type: unspecified Qualified Code(s): R53.83 - Other fatigue (2) Abnormal EKG Conclusion/Plan: ER called pt's computer aided drafter, will follow up the recommendation resume of home long and short acting metoprolol, pt just saw his computer aided drafter in this morning, his home meds updated. on tele, vital closely monitor EKG PRN (3) Supratherapeutic INR Conclusion/Plan: INR is over 10, Vitamin K was given once in the ER continue check PT/INR hold Coumadin (4) Hx of cancer of lung Conclusion/Plan: discuss with pt, follow up his oncologist as out-pt (5) History of COPD Conclusion/Plan: resume home meds. it seems stable. 100% Sats on room air (6) DVT prophylaxis Conclusion/Plan: SCD (7) Full code status Conclusion/Plan: pt request full code status - Lab Results Fish Bones: 01/15/18 05:46 01/15/18 05:46 Core Measures - Anticipated LOS I expect patient to be DC'd or transferred within 96 hours.: Yes - DVT/VTE - Prophylaxis VTE/DVT Device ordered at admit?: Yes VTE/DVT Prophylaxis med ordered at admit?: No Not Ordered - Medical Reason: Contraindicated - AMI - Statin at Admit Aspirin Prescribed on Admit: No Not Ordered - Medical Reason: Contraindicated
[2018-01-14] MEDS: IPRATROPIUM/ALBUTEROL 3 ML NEB INH PRN (19:32)
[2018-01-14] MEDS: METOPROLOL TARTRATE 25 MG TABLET PO SCH (21:12)
[2018-01-14] MEDS: METOPROLOL SUCCINATE 25 MG TABLET PO SCH (21:12)
[2018-01-14] MEDS: ALBUTEROL NEB 2.5 MG/3 ML INH PRN (22:50)
[2018-01-15] MEDS: SODIUM CHLORIDE FLUSH 0.9% 10 ML SYRINGE IVP SCH ×3 (00:50→20:12)
[2018-01-15] MEDS: SODIUM CHLORIDE FLUSH 0.9% 10 ML SYRINGE IVP PRN (00:50)
[2018-01-15] MEDS: IPRATROPIUM/ALBUTEROL 3 ML NEB INH PRN (03:28)
[2018-01-15 06:27] LABS: BASOPHILS % (AUTO) 0.4 %; EOSINOPHILS # (AUTO) 0.3 10^3/uL (0.0-0.7); EOSINOPHILS % (AUTO) 3.1 %; HGB - HEMOGLOBIN 10.5 g/dL (14.0-18.0); LYMPHOCYTES # (AUTO) 0.5 10^3/uL (1.5-3.5); LYMPHOCYTES % (AUTO) 6.3 %; MEAN CORPUSCULAR HGB CONC 31.3 g/dL (32.0-36.0); MEAN CORPUSCULAR VOLUME 79.9 fL (80.0-94.0); MEAN PLATELET VOLUME 7.6 fL (7.4-11.4); MONOCYTES # (AUTO) 0.8 10^3/uL (0.0-1.0); NEUTROPHILS # (AUTO) 7.1 10^3/uL (1.5-6.6); NEUTROPHILS % (AUTO) 81.2 %; PLT - PLATELET COUNT 416 10^3/uL (130-450); RED BLOOD COUNT 4.21 10^6/uL (4.70-6.10); WHITE BLOOD COUNT 8.7 x10^3/uL (4.8-10.8)
[2018-01-15 06:40] LABS: PT - PROTHROMBIN TIME 92.2 secs (9.9-12.6)
[2018-01-15 06:41] LABS: ALBUMIN 2.6 g/dL (3.2-5.5); ALBUMIN/GLOBULIN RATIO 0.7 (1.0-2.2); BILIRUBIN,TOTAL 0.8 mg/dL (0.2-1.0); CALCIUM 10.2 mg/dL (8.5-10.3); CREATININE 0.8 mg/dL (0.6-1.2); TOTAL PROTEIN 6.6 g/dL (6.7-8.2)
[2018-01-15 06:51] LABS: INR 8.9 (0.8-1.2)
[2018-01-15 06:53] LABS: PLATELET ESTIMATE, MANUAL NORMAL (130-450,000) (NORMAL)
[2018-01-15] MEDS: POLYETHYLENE GLYCOL 3350 17 GM PACKET PO SCH (09:10)
[2018-01-15] MEDS: FUROSEMIDE 20 MG TABLET PO SCH (09:10)
[2018-01-15] MEDS: FAMOTIDINE 20 MG TABLET PO SCH (09:10)
[2018-01-15] MEDS: METOPROLOL SUCCINATE 25 MG TABLET PO SCH ×2 (09:10→20:19)
[2018-01-15] MEDS: ALBUTEROL NEB 2.5 MG/3 ML INH PRN (09:28)
[2018-01-15 13:11] LABS: PT - PROTHROMBIN TIME 67.1 secs (9.9-12.6)
[2018-01-15 13:27] LABS: INR 6.4 (0.8-1.2)
--- NOTE | 2018-01-15 15:38 | PROVIDER PROGRESS NOTE ---
Subjective - Prog Note Date Prog Note Date: 01/15/18 - Subjective Pt reports feeling: Improved Subjective: pt report no chest pain,feel better. Troponin is stable, at around 0.19. no acute abnormal EKG reported. Pt's INR is 6.4. Pt request to be d/c on early tomorrow morning to catch his appointment for immune therapy Current Medications - Current Medications Current Medications: Active Medications Acetaminophen (Tylenol) 650 mg PO Q4HR PRN PRN Reason: Pain 1 to 4 Last Admin: 01/15/18 00:59 Dose: 650 mg Albuterol () 2.5 mg INH RTQ4H PRN PRN Reason: Wheezing Last Admin: 01/15/18 09:28 Dose: 2.5 mg Albuterol/Ipratropium (Duoneb) 3 ml INH RTQ4H PRN PRN Reason: Wheezing Last Admin: 01/15/18 03:28 Dose: 3 ml Famotidine (Pepcid) 20 mg PO DAILY [facility] Last Admin: 01/15/18 09:10 Dose: 20 mg Furosemide (Lasix) 20 mg PO DAILY [facility] Last Admin: 01/15/18 09:10 Dose: 20 mg Heparin Sodium (Beef Lung) () 30 - 50 unit IVP PRN PRN PRN Reason: Port Protocol (<24 hours) Last Admin: 01/15/18 00:50 Dose: 50 unit Metoprolol Succinate (Toprol Xl) 25 mg PO QPM [facility] Last Admin: 01/14/18 21:12 Dose: 25 mg Metoprolol Succinate (Toprol Xl) 75 mg PO DAILY [facility] Last Admin: 01/15/18 09:10 Dose: 75 mg Metoprolol Tartrate (Lopressor) 25 mg PO QPM [facility] Last Admin: 01/14/18 21:12 Dose: 25 mg Morphine Sulfate (Morphine) 2 mg IVP Q5M PRN PRN Reason: Chest pain Nitroglycerin (Nitrostat) 0.4 mg SL Q5MIN PRN PRN Reason: Chest Pain Ondansetron HCl (Zofran Inj) 4 mg IVP Q6HR PRN PRN Reason: Nausea / Vomiting Polyethylene Glycol (Miralax) 17 gm PO DAILY [facility] Last Admin: 01/15/18 09:10 Dose: Not Given Sodium Chloride (Normal Saline Flush 0.9%) 10 ml IVP PRN PRN PRN Reason: NEEDED PER PROVIDER ORDERS Last Admin: 01/15/18 00:50 Dose: 10 ml Sodium Chloride (Normal Saline Flush 0.9%) 10 ml IVP 0100,0900,1700 [facility] Last Admin: 01/15/18 09:10 Dose: Not Given Warfarin [Coumadin] 5 mg PO 1700 03/18/17 Albuterol Sulf [Ventolin Hfa Inhaler] 2 puffs INH Q4HR PRN 01/14/18 Fluticasone/Salmeterol [Advair 250-50 Diskus] 1 puffs INH BID 01/14/18 Furosemide [Furosemide] 20 mg PO DAILY 01/14/18 Metoprolol Succinate 25 mg PO QPM 01/14/18 Metoprolol Succinate [Toprol Xl] 75 mg PO DAILY 01/14/18 Metoprolol Tartrate 25 mg PO QPM 01/14/18 Tiotropium [place] [Spiriva] 18 mcg INH DAILY 01/14/18 Objective - Vital Signs/Intake & Output Reviewed Vital Signs: Yes Vital Signs: Vital Signs x48h Temp Pulse Pulse Resp BP Pulse Ox 01/15/18 11:32 36.5 C 96 19 95/62 95 01/15/18 09:28 102 H 14 Intake & Output: Intake & Output 01/12/18 01/13/18 01/14/18 01/15/18 23:59 23:59 23:59 23:59 Intake Total 1999 Balance 1999 - Objective General Appearance: positive: No acute distress, Alert. negative: Lethargic Eyes Bilateral: positive: Normal inspection, PERRL, No lid inflammation, Conjunctivae nml ENT: positive: ENT inspection nml, Pharynx nml, No signs of dehydration. negative: Purulent nasal drainage, Pharyngeal erythema, Oral lesions Neck: positive: Nml inspection, Thyroid nml, No JVD, Trachea midline. negative : Thyromegaly, Lymphadenopathy (R), Lymphadenopathy (L), Stiff neck, Swelling/ bruising, Tracheal deviation Respiratory: positive: Chest non-tender, No respiratory distress. negative: Wheezes, Rales, Rhonchi Cardiovascular: positive: Regular rate & rhythm, No murmur, No gallop. negative : Irregularly irregular, Extrasystoles, Tachycardia, JVD present, Systolic murmur, Diastolic murmur Peripheral Pulses: 2+ Radial (R), 2+ Radial (L), 2+ Dorsalis pedis (R), 2+ Dorsalis pedis (L) Abdomen: positive: Non-tender, No organomegaly, Nml bowel sounds, No distention. negative: Tenderness, Guarding, Rebound Back: positive: Nml inspection. negative: CVA tenderness (R), CVA tenderness (L ) Skin: positive: Color nml, No rash, Warm, Dry. negative: Cyanosis, Diaphoresis , Pallor Extremities: positive: Non-tender, Full ROM, Nml appearance. negative: Calf tenderness, Joint swelling, Eugene's sign/cords Neurologic/Psychiatric: positive: Oriented x3, Sensation nml, Mood/affect nml. negative: Sensory loss, Facial droop, Slurred/abnml speech, Depressed mood/ affect - Lab Results Fish Bones: 01/15/18 05:46 01/15/18 05:46 Other Labs: Lab Results x24hrs 01/15/18 01/15/18 01/15/18 Range/Units 12:55 06:27 05:46 WBC (4.8-10.8) x10^3/uL RBC (4.70-6.10) 10^6/uL Hgb (14.0-18.0) g/dL Hct (42.0-52.0) % MCV (80.0-94.0) fL MCH (27.0-31.0) pg MCHC (32.0-36.0) g/dL RDW (12.0-15.0) % Plt Count (130-450) 10^3/uL MPV (7.4-11.4) fL Neut # (1.5-6.6) 10^3/uL Lymph # (1.5-3.5) 10^3/uL [place] # (0.0-1.0) 10^3/uL Eos # (0.0-0.7) 10^3/uL Baso # (0.0-0.1) 10^3/uL Absolute Nucleated RBC x10^3/uL Nucleated RBC % /100WBC Manual Slide Review Platelet Estimate (NORMAL) RBC Morph Micro Appear (NORMAL) PT 67.1 H 92.2 H (9.9-12.6) secs INR 6.4 H* 8.9 H* (0.8-1.2) Sodium 136 (135-145) mmol/L Potassium 3.6 (3.5-5.0) mmol/L Chloride 102 (101-111) mmol/L Carbon Dioxide 26 (21-32) mmol/L Anion Gap 8.0 (6-13) BUN 20 (6-20) mg/dL Creatinine 0.8 (0.6-1.2) mg/dL Estimated GFR (MDRD) 94 (>89) Glucose 106 H (70-100) mg/dL Calcium 10.2 (8.5-10.3) mg/dL Magnesium 2.0 (1.7-2.8) mg/dL Total Bilirubin 0.8 (0.2-1.0) mg/dL AST 22 (10-42) IU/L ALT 22 (10-60) IU/L Alkaline Phosphatase 130 H (42-121) IU/L Troponin I (<0.49) ng/mL Total Protein 6.6 L (6.7-8.2) g/dL Albumin 2.6 L (3.2-5.5) g/dL Globulin 4.0 (2.1-4.2) g/dL Albumin/Globulin Ratio 0.7 L (1.0-2.2) 18 18 01/14/18 Range/Units 05:46 05:46 21:56 WBC 8.7 (4.8-10.8) x10^3/uL RBC 4.21 L (4.70-6.10) 10^6/uL Hgb 10.5 L (14.0-18.0) g/dL Hct 33.7 L (42.0-52.0) % MCV 79.9 L (80.0-94.0) fL MCH 25.0 L (27.0-31.0) pg MCHC 31.3 L (32.0-36.0) g/dL RDW 23.0 H (12.0-15.0) % Plt Count 416 (130-450) 10^3/uL MPV 7.6 (7.4-11.4) fL Neut # 7.1 H (1.5-6.6) 10^3/uL Lymph # 0.5 L (1.5-3.5) 10^3/uL [place] # 0.8 (0.0-1.0) 10^3/uL Eos # 0.3 (0.0-0.7) 10^3/uL Baso # 0.0 (0.0-0.1) 10^3/uL Absolute Nucleated RBC 0.00 x10^3/uL Nucleated RBC % 0.0 /100WBC Manual Slide Review Indicated Platelet Estimate NORMAL (130-450,000) (NORMAL) RBC Morph Micro Appear 1+ TEARDROP CELLS (NORMAL) PT (9.9-12.6) secs INR (0.8-1.2) Sodium (135-145) mmol/L Potassium (3.5-5.0) mmol/L Chloride (101-111) mmol/L Carbon Dioxide (21-32) mmol/L Anion Gap (6-13) BUN (6-20) mg/dL Creatinine (0.6-1.2) mg/dL Estimated GFR (MDRD) (>89) Glucose (70-100) mg/dL Calcium (8.5-10.3) mg/dL Magnesium (1.7-2.8) mg/dL Total Bilirubin (0.2-1.0) mg/dL AST (10-42) IU/L ALT (10-60) IU/L Alkaline Phosphatase (42-121) IU/L Troponin I 0.17 0.16 (<0.49) ng/mL Total Protein (6.7-8.2) g/dL Albumin (3.2-5.5) g/dL Globulin (2.1-4.2) g/dL Albumin/Globulin Ratio (1.0-2.2) ABX Reporting Has patient been on IV antibiotics over the past 48 hours?: No Assessment/Plan - Problem List (1) Fatigue Impression: (1) Fatigue Conclusion/Plan: pt report he feel better, not fatigue as before. No chest pain. Troponin stable at 0.19. continue on tele, vital monitor EKG PRN Nitro PRN Morphin PRN pt did not complain chest pain or pressure. Pt had elevated troponin, and extensive cardiac history, with one episode of V. tach on tele, vital monitor closely continue troponin serial EKG PRN Nitro PRN Morphin PRN resume home long and short action of Metoprolol (2) Abnormal EKG Conclusion/Plan: no more tele abnormal report as far, stable at ib ER called pt's apple turner, will follow up the recommendation resume of home long and short acting metoprolol, pt just saw his apple turner in this morning, his home meds updated. on tele, vital closely monitor EKG PRN (3) Supratherapeutic INR Conclusion/Plan: INR is 6.4 now, pt will stay overnight to check PT/INR, and most likely start Coumadin tomorrow again, then D/C pt INR is over 10, Vitamin K was given once in the ER continue check PT/INR hold Coumadin (4) Hx of cancer of lung Conclusion/Plan: discuss with pt, follow up his oncologist as out-pt (5) History of COPD Conclusion/Plan: resume home meds. it seems stable. 100% Sats on room air Qualifiers: Fatigue type: unspecified Qualified Code(s): R53.83 - Other fatigue
[2018-01-15] MEDS ORDERED: LORazepam 2 MG/ML VIAL IVP STA (19:52)
[2018-01-15] MEDS: METOPROLOL TARTRATE 25 MG TABLET PO SCH (20:16)
[2018-01-16] MEDS: SODIUM CHLORIDE FLUSH 0.9% 10 ML SYRINGE IVP PRN (01:12)
[2018-01-16] MEDS: SODIUM CHLORIDE FLUSH 0.9% 10 ML SYRINGE IVP SCH ×2 (01:12→08:48)
[2018-01-16] MEDS: IPRATROPIUM/ALBUTEROL 3 ML NEB INH PRN (03:05)
[2018-01-16 06:02] LABS: HGB - HEMOGLOBIN 11.5 g/dL (14.0-18.0); LYMPHOCYTES # (AUTO) 0.5 10^3/uL (1.5-3.5); MEAN PLATELET VOLUME 7.6 fL (7.4-11.4)
[2018-01-16 06:05] LABS: BASOPHILS # (AUTO) 0.1 10^3/uL (0.0-0.1); BASOPHILS % (AUTO) 0.6 %; EOSINOPHILS # (AUTO) 0.1 10^3/uL (0.0-0.7); EOSINOPHILS % (AUTO) 1.6 %; LYMPHOCYTES % (AUTO) 5.4 %; MEAN CORPUSCULAR HEMOGLOBIN 24.5 pg (27.0-31.0); MEAN CORPUSCULAR HGB CONC 30.5 g/dL (32.0-36.0); MEAN CORPUSCULAR VOLUME 80.3 fL (80.0-94.0); MONOCYTES # (AUTO) 0.8 10^3/uL (0.0-1.0); MONOCYTES % (AUTO) 8.8 %; NEUTROPHILS # (AUTO) 7.6 10^3/uL (1.5-6.6); NEUTROPHILS % (AUTO) 83.6 %; PLT - PLATELET COUNT 385 10^3/uL (130-450); RED BLOOD COUNT 4.68 10^6/uL (4.70-6.10); RED CELL DISTRIBUTION WIDTH 22.7 % (12.0-15.0)
[2018-01-16 06:08] LABS: ALBUMIN 2.6 g/dL (3.2-5.5); ALBUMIN/GLOBULIN RATIO 0.6 (1.0-2.2); CALCIUM 10.5 mg/dL (8.5-10.3); CREATININE 0.8 mg/dL (0.6-1.2)
[2018-01-16 06:22] LABS: PT - PROTHROMBIN TIME 51.3 secs (9.9-12.6)
[2018-01-16 06:28] LABS: INR 4.8 (0.8-1.2)
[2018-01-16 06:53] LABS: PLATELET ESTIMATE, MANUAL NORMAL (130-450,000) (NORMAL)
[2018-01-16 07:44] VITALS: BP 120/77
--- NOTE | 2018-01-16 07:58 | Discharge Plan ---
Discharge Plan Disposition: Home, Self Care Condition: Poor Prescriptions: Amox/Clav 500/125 [Augmentin 500/125] 1 tab PO BID #14 tablet Diet: Cardiac Activity Restrictions: Activity as Tolerated Shower Restrictions: No (caregiver closely monitor, fall precaution) Assistance Devices: Walker Weight Bearing: Full Weight Instruction Topics: Amoxicillin Clavulanic Acid tablets, Pacemaker Biventricular and ICD, Heart Valves, Heart Failure Coping Additional Instructions or Follow Up instructions: You may see your PCP in 2-3 days and have PT/INR test, follow up your informatica immediately after discharge, follow up your oncologist as the schedule. Should your symptoms return or worsen, you may present ER or call 911 for help. You are welcomed to our service. Follow-Up Care: [facility], [facility], [facility] No Smoking: If you smoke, Please STOP! Call for help. Follow-up with: Silvano Hernandez MD [Primary Care Provider] -
[2018-01-16] MEDS ORDERED: AMOX/CLAV 500 MG/125 MG TABLET PO SCH (08:00)
--- NOTE | 2018-01-16 08:11 | DISCHARGE SUMMARY ---
Discharge Summary Discharge Date: 01/16/18 Discharging Provider: STEIN Primary Care Provider: Dr. Hernandez Condition at Discharge: Poor Discharge Disposition: 01 Home, Self Care Discharge Facility Name: home - DIAGNOSES Admission Diagnoses: (1) Fatigue (2) Abnormal EKG (3) Supratherapeutic INR (4) stage 4 of lung cancer (5) History of COPD Discharge Diagnoses with Status of Each Condition: (1) Fatigue pt denies chest pain, complains of fatigue. Three troponin reveals stable, unremarkable. ER contacted pt's glue sprayer, coronary intervention would not be undertaken given his comorbidities. ECHO reveals EF is 20-25%. pt is advised to follow up his glue sprayer immediately. (2) Abnormal EKG no more V.tachycardia. Stable. pt is advised to follow up his glue sprayer immediately for management (3) Supratherapeutic INR pt's INR is down to 4.6 at d/c time. Pt is advised to start his Coumadin on next day and follow up PCP 2-3days for management. I and our nurse tried to contact his PCP but unsuccessfully. (4)stage 4 of lung cancer pt has immune therapy schedule today, pt request to be discharged early at morning to catch his appointment. pt is advised to follow up his oncologist closely (5) History of COPD stable, 97% Sat of O2 on room air, resume home regime, managed by PCP (6) cough with sputum 97% Sat of O2 on room air, mild cough with sputum. sputum culture is pending, pt is prescribed antibiotics for d/c. discuss with pt for possible bronchitis or pneumonia, pt is high risk for infection. pt state he will see his PCP next day and manage these medical problems. - HPI History of Present Illness: Mr. Finch is 77-year-old male with a PMH significant for stage 4 lung cancer under immune therapy, hx of [place], CAD with A.fib and V. 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 The second and third EKG did not show V. tachycardia, instead of Afib as pt's baseline EKG. Pt's Troponin had slight elevated to 0.19. Pt complaint fatigue but without chest pain, pressure, nausea, vomiting, diaphoresis or other radiated pain. Pt saw his glue sprayer today morning. Dr. Bishop, his glue sprayer, was contacted in the ER and the glue sprayer felt that coronary intervention would not be undertaken given his comorbidities. He did Recommend increasing his beta blockade. Lab reported his INR is over 10. pt report he did not have PT/INR test for three weeks and he took Coumadin yesterday. Pt was given one dosage of Vitamin K in the ER. Pt is admitted in observation unit for r/o acute CO. - ALLERGIES Allergies/Adverse Reactions: Allergies Allergy/AdvReac Type Severity Reaction Status Date / Time No Known Drug Allergies Allergy Verified 03/18/17 18:00 - MEDICATIONS Home Medications: Ambulatory Orders Medication Instructions Recorded Confirmed Warfarin [Coumadin] 5 mg PO 1700 03/18/17 01/14/18 Albuterol Sulf [Ventolin Hfa 2 puffs INH Q4HR PRN 01/14/18 01/14/18 Inhaler] Fluticasone/Salmeterol [Advair 1 puffs INH BID 01/14/18 01/14/18 250-50 Diskus] Furosemide 20 mg PO DAILY 01/14/18 01/14/18 Metoprolol Succinate 25 mg PO QPM 01/14/18 01/14/18 Metoprolol Succinate [Toprol Xl] 75 mg PO DAILY 01/14/18 01/14/18 Metoprolol Tartrate 25 mg PO QPM 01/14/18 01/14/18 Tiotropium [place] [Spiriva] 18 mcg INH DAILY 01/14/18 01/14/18 Amox/Clav 500/125 [Augmentin 1 tab PO BID #14 tablet 01/16/18 500/125] - PHYSICAL EXAM AT DISCHARGE General Appearance: positive: No acute distress, Alert. negative: Lethargic Eyes Bilateral: positive: Normal inspection, PERRL, No lid inflammation, Conjunctivae nml ENT: positive: ENT inspection nml, Pharynx nml, No signs of dehydration. negative: Purulent nasal drainage, Pharyngeal erythema, Oral lesions Neck: positive: Nml inspection, Thyroid nml, No JVD, Trachea midline. negative : Thyromegaly, Lymphadenopathy (R), Lymphadenopathy (L), Stiff neck, Swelling/ bruising, Tracheal deviation Respiratory: positive: Chest non-tender, No respiratory distress. negative: Wheezes, Rales Cardiovascular: positive: Regular rate & rhythm, Irregularly irregular, Systolic murmur, Diastolic murmur. negative: Tachycardia, Bradycardia Peripheral Pulses: positive: 2+ Abdomen: positive: Non-tender, No organomegaly, Nml bowel sounds, No distention. negative: Tenderness, Guarding, Rebound Back: positive: Nml inspection. negative: CVA tenderness (R), CVA tenderness (L ) Skin: positive: Color nml, No rash, Warm, Dry. negative: Cyanosis, Diaphoresis , Pallor Extremities: positive: Non-tender, Full ROM, Nml appearance. negative: Calf tenderness, Joint swelling, Eugene's sign/cords Neurologic/Psychiatric: positive: Oriented x3, Sensation nml, Mood/affect nml, Weakness. negative: Sensory loss, Facial droop, Slurred/abnml speech, Depressed mood/affect - LABS Result Diagrams: 01/16/18 05:29 01/16/18 05:29 - FOLLOW UP Follow Up: pt was admitted for abnormal EKG in cardiac rehab, then had slightly elevated troponin, and Supratherapeutic anticoagulation status. You reported you did not have chest pain but felt fatigue. your glue sprayer, Dr. Bishop, was immediately consulted per ER report, coronary intervention would not be undertaken given his comorbidities. The Troponin serial test was stable and unremarkable. You report you did not have chest pain, no other cardiac distresses. Your ECHO reveals your EF is 20-25%. Discuss with you all test results and advised you immediately follow up your glue sprayer after discharged from hospital. Your PT/INR was down to 4.6, you were advised to follow up your PCP on 2-3 days to continue manage your health and anticoagulation status, and started your Coumadin on next day. You report some cough as your usual, and with color sputum. you are in the high risk for infection. Your sputum culture is pending. You were advised to follow up your oncologist closely. You state you have immune therapy today. You requested to be d/c early in the morning. you are prescribed antibiotics for d/c to home. You state you will see your PCP on next day, you were advised to discuss with PCP all these medication issues. - TIME SPENT Time Spent in Discharge (Minutes): 60
[2018-01-16] MEDS: FAMOTIDINE 20 MG TABLET PO SCH (08:45)
[2018-01-16] MEDS: FUROSEMIDE 20 MG TABLET PO SCH (08:45)
[2018-01-16] MEDS: METOPROLOL SUCCINATE 25 MG TABLET PO SCH (08:45)
[2018-01-16] MEDS: POLYETHYLENE GLYCOL 3350 17 GM PACKET PO SCH (09:21)
[2018-01-16] MEDS: ALBUTEROL NEB 2.5 MG/3 ML INH PRN (09:29)
== END 2018-01-16 11:20 | disposition home or self-care (01) ==
LOC: ED 14:48 → OBS 17:28
PROVIDERS: ADMIT Nurse Practitioner Gerontology; ATTEND Nurse Practitioner Gerontology
DX: R53.83 Other fatigue (principal); I47.2 Ventricular tachycardia; I48.91 Unspecified atrial fibrillation; C34.90 Malignant neoplasm of unspecified part of unspecified bronchus or lung; C79.51 Secondary malignant neoplasm of bone; J43.9 Emphysema, unspecified; R05 Cough; I50.9 Heart failure, unspecified; I25.10 Atherosclerotic heart disease of native coronary artery without angina pectoris; I73.9 Peripheral vascular disease, unspecified; J84.10 Pulmonary fibrosis, unspecified; I25.2 Old myocardial infarction; Z95.5 Presence of coronary angioplasty implant and graft; Z79.01 Long term (current) use of anticoagulants; Z95.2 Presence of prosthetic heart valve; Z79.899 Other long term (current) drug therapy
CPT/HCPCS: 36415; 71045; 80053; 83690; 83735; 84484; 85025; 85610; 87070; 87077; 87181; 87205; 93005; 93306; 94640; 96372; 96374; 96375; 99284; 99285; A9270; G0378; J2060

== ENCOUNTER 2018-01-19 12:04 | Outpatient (CLI) | payer MEDICARE, OTHER | END 2018-01-19 12:05 | disposition short-term general hospital (02) | LOC: EMS 12:04 | PROVIDERS: ATTEND Surgery | DX: R07.89 Other chest pain (principal); R06.02 Shortness of breath | CPT/HCPCS: A0425; A0427 ==